=== PATIENT | female | born 1955 | race Caucasian/White ===

== ENCOUNTER → 2017-04-25 | Outpatient (CLI) | payer OTHER | LOC: FIMAGING 15:02 | PROVIDERS: ATTEND Internal Medicine | DX: Z12.31 Encounter for screening mammogram for malignant neoplasm of breast (principal) | CPT/HCPCS: G0202 ==

== ENCOUNTER 2017-11-01 09:54 | Day surgery (SDC) | payer OTHER ==
--- NOTE | 2017-10-29 09:17 | PDGENHP ---
History and Physical History and Physical: Assessment and Plan: 1. Genuine stress incontinence, female Lay has straightforward stress urinary incontinence with a mobile urethra. We reviewed all conservative and surgical options. She has failed conservative management. As a result, she wishes to proceed with a mid urethral sling procedure. Subjective: Patient ID: Lay Olson is a 61 y.o. female who presents to [facility] for incontinence. SUZI Chun is a 61-year-old para 0 woman who presents with incontinence. She has leaked urine for approximately 20 years. It has slowly worsened. She underwent pelvic physical therapy one year ago. She has pelvic strengthening exercises daily. This only helps minimally. She has also been using a Poise Impress incontinence device which helps mildly when hiking. However she leaks with sneezing, coughing, walking and hiking. It tends to get worse as the day progresses. She wears a pad and must change it 4 times during the day and once at night. She is extremely tired of leaking and wishes to discuss options. She has previously undergone urodynamic testing with Dr. Renteria. She brought a copy of the report. PastMedicalHistory No past medical history on file. PastSurgicalHistory Past Surgical History: Procedure Laterality Date FINGER SURGERY Right WRIST SURGERY Right 2006 CURRENT MEDICATIONS: Current Outpatient Prescriptions Medication Sig CALCIUM PO DOCOSAHEXANOIC ACID/EPA (FISH OIL PO) ERGOCALCIFEROL, VITAMIN D2, (VITAMIN D PO) LUTEIN PO multivitamin (HEXAVITAMIN) per tablet Take 1 tablet by mouth daily. RED YEAST RICE PO No current facility-administered medications for this visit. ALLERGIES: No known drug allergies I have reviewed, verified and agree with the past medical, surgical, , family, social and ROS history as documented by the RN today. Objective: Vital Signs: Visit Vitals BP 110/62 Pulse 90 Temp 36.4 C (97.5 F) (Temporal Artery) Resp 14 Ht 1.626 m (5' 4") Wt 63 kg (139 lb) SpO2 96% BMI 23.86 kg/m Physical Exam Gen: This is an alert, well developed woman in no distress. Neuro: She moves all extremities. Psych: She is appropriate, oriented, with normal affect. Neck: No thyroid enlargement, adenopathy, or tenderness. Lungs: Clear to ascultation, no wheezes or rales. Heart: Regular rate and rhythm without obvious murmurs. Abdomen: Soft, non-tender, without guarding, rebound, or masses. Extremities: No edema or cyanosis. Pelvic: Normal external genitalia. Non-gaping introitus, vagina without discharge, adequately estrogenized, no significant prolapse. Cervix without lesions or discharge. Uterus normal sized, mobile, non-tender. Adnexa non- tender without enlargement. The urethra is mobile. She has obvious leakage of urine with coughing. DATA: I have reviewed the pertinent medical records. TIME/COMMUNICATION: I personally spent a total of 30 minutes. Of that 20 minutes was counseling/ coordination of patient's care. See my note above for details. Tevin Obrien MD Board Certified Female Pelvic Medicine and Reconstructive Surgery Director of Minimally Invasive Gynecologic Surgery, [facility] Surgeon in Minimally Invasive Gynecologic Surgery [facility] Surgeon in Robotic Surgery
[2017-11-01] MEDS ORDERED: ceFAZolin 2 GM/SWFI 2 GM/20 ML SYR IVP ONE (10:05)
[2017-11-01] MEDS ORDERED: LIDOCAINE 1% 2 ML INJ ID PRN (10:06)
[2017-11-01] MEDS ORDERED: LR 1,000 ML IV ONE (10:06)
--- NOTE | 2017-11-01 11:07 | PDHPUP ---
History & Physical Update H&P update statement: This history and physical update is based on an assessment of the patient which was completed after admission or registration (within 24 hours), but prior to the surgery/procedure. H&P update: H&P reviewed & patient examined, no change in patient's condition since H&P completed
[2017-11-01] MEDS ORDERED: BUPIVACAINE/EPI 0.5% 30 ML SDV ONE (11:10)
[2017-11-01] MEDS ORDERED: PROPOFOL/EMULSION 500 MG/50 ML BOTTLE IV ONE (11:14)
[2017-11-01] MEDS ORDERED: MIDAZOLAM 2 MG/2 ML VIAL ONE (11:15)
[2017-11-01] MEDS ORDERED: fentaNYL 100 MCG/2 ML INJ ONE (11:15)
[2017-11-01] MEDS ORDERED: ONDANSETRON 4 MG/2 ML VIAL ONE (11:31)
[2017-11-01] MEDS ORDERED: KETOROLAC 30 MG/1 ML SDV ONE (11:31)
[2017-11-01] MEDS ORDERED: HYDROCODONE/APAP 5/325 TAB PO PRN (11:41)
[2017-11-01] MEDS ORDERED: LR 500 ML IV PRN (11:41)
[2017-11-01] MEDS ORDERED: MEPERIDINE 25 MG/ML SYR IVP PRN (11:41)
[2017-11-01] MEDS ORDERED: ACETAMINOPHEN 500 MG TAB PO PRN (11:41)
[2017-11-01] MEDS ORDERED: ONDANSETRON 4 MG/2 ML VIAL IVP PRN (11:41)
[2017-11-01] MEDS ORDERED: ALBUTEROL 3 ML DEYVIAL IH PRN (11:41)
[2017-11-01] MEDS ORDERED: NALOXONE HCL 0.4 MG/ML INJ IVP PRN (11:41)
[2017-11-01] MEDS ORDERED: DEXAMETHASONE 4 MG/ML VIAL IVP PRN (11:41)
[2017-11-01] MEDS ORDERED: fentaNYL 100 MCG/2 ML INJ IVP PRN (11:41)
[2017-11-01] MEDS ORDERED: METOCLOPRAMIDE 10 MG/2 ML VIAL IVP PRN (11:41)
--- NOTE | 2017-11-01 11:41 | PDANEPAE ---
ANE Past Medical History - Cardiovascular History Hx Hypertension: No Hx Arrhythmias: No Hx Chest Pain: No Hx Coronary Artery / Peripheral Vascular Disease: No Hx CHF / Valvular Disease: No Hx Palpitations: No - Pulmonary History Hx COPD: No Hx Asthma/Reactive Airway Disease: No Hx Recent Upper Respiratory Infection: No Hx Oxygen in Use at Home: No Hx Sleep Apnea: No Sleep Apnea Screening Result - Last Documented: Negative - Neurologic History Hx Cerebrovascular Accident: No Hx Seizures: No Hx Dementia: No - Endocrine History Hx Diabetes: No - Renal History Hx Renal Disorders: No - Liver History Hx Hepatic Disorders: No - Neurological & Psychiatric Hx Hx Neurological and Psychiatric Disorders: No - Cancer History Hx Cancer: No - Congenital Disorder History Hx Congenital Disorders: No - GI History Hx Gastrointestinal Disorders: No - Chronic Pain History Chronic Pain: No - Surgical History Prior Surgeries: none ANE Review of Systems Review of Systems: - Exercise capacity METS (RN): 4 METS ANE Patient History - Allergies Allergies/Adverse Reactions: latex Allergy (Mild, Verified 09/26/17 15:36) Other-Enter Comments - Home Medications Home Medications: Red Yeast Rice Extract [Red Yeast Rice] 12/05/10 [Last Taken 1 Week Ago ~] CALCIUM 07/21/15 [Last Taken 1 Week Ago ~10/25/17] Lutein 07/21/15 [Last Taken 1 Week Ago ~10/25/17] Vitamin D3 (OTC) 07/21/15 [Last Taken 1 Week Ago ~10/25/17] Multivitamins 09/26/17 [Last Taken 1 Week Ago ~10/25/17] [place]-3 09/26/17 [Last Taken 1 Week Ago ~10/25/17] - NPO status NPO Since - Liquids (Date): 11/01/17 NPO Since - Liquids (Time): 08:00 NPO Since - Solids (Date): 10/31/17 NPO Since - Solids (Time): 22:15 - Smoking Hx Smoking Status: Never smoked - Family Anes Hx Family Hx Anesthesia Complications: none ANE Labs/Vital Signs - Vital Signs Blood Pressure: 130/81 Heart Rate: 74 Respiratory Rate: 15 O2 Sat (%): 97 Height: 162.56 cm Weight: 62.596 kg ANE Physical Exam - Airway Neck exam: FROM Mallampati Score: Class 1 Mouth exam: normal dental/mouth exam - Pulmonary Pulmonary: no respiratory distress, no rales or rhonchi, clear to auscultation - Cardiovascular Cardiovascular: regular rate and rhythym, no murmur, rub, or gallop ANE Anesthesia Plan Anesthesia Plan: GA w LMA
--- NOTE | 2017-11-01 11:59 | POSTOPPROG ---
Post Op Note Date of Operation: 11/01/17 Surgeon: Tevin Obrien Scrubber Machine Tender: None Anesthesiologist: Cherelle Roberts Anesthesia: GET(General Endotracheal) Pre-op Diagnosis: stess incontinence Post-op Diagnosis: same Procedure: TOT sling, cysto Findings: No injury Inf/Abcess present in the surg proc area at time of surgery?: No Complications: None
--- NOTE | 2017-11-01 12:44 | POSTANESTH ---
Post Anesthetic Evaluation Cardiovascular Status: Normal, Stable Respiratory Status: Normal, Stable Level of Consciousness/Mental Status: Mildly Sleepy, Arousable Pain Control: Adequate, Prn Tx Ordered Nausea/Vomiting Control: Adequate, Prn Tx Ordered Complications Possibly Related to Anesthesia: None Noted
--- NOTE | 2017-11-01 13:01 | GOP ---
[f rep st] OPERATIVE REPORT DATE OF OPERATION: 11/01/2017 SURGEON: Tevin Obrien MD TEMPERATURE REGULATOR PYROMETER: None. ANESTHESIA: General. PREOPERATIVE DIAGNOSIS: Stress urinary incontinence. POSTOPERATIVE DIAGNOSIS: Stress urinary incontinence. PROCEDURE PERFORMED: 1. Transobturator sling. 2. Cystoscopy. FINDINGS: SPECIMENS: None. ESTIMATED BLOOD LOSS: Scant. DESCRIPTION OF PROCEDURE: Lay was taken to the operating room where she was identified. Genera l anesthesia was administered and found to be adequate. She was placed in the lithotomy position and prepared and draped in a normal sterile fashion. A Jessica catheter was placed in her bladder. A mid urethral incision was made with a scalpel. Tunnels were created bilaterally out to the obturat or internus muscles. Skin incisions were made over the obturator notches. The Halo trocar was place d through the left skin incision, redirected around the ischial pubic rami and out through the vagina l incision using a vaginal finger as a guide. The lateral sulci was examined and no evidence of vagi nal injury had occurred. The sling was then attached and brought out along the same course. The exa ct same procedure was performed on the patient's right side. The sling was then adjusted to allow a small mid urethral gap. The vaginal epithelium was closed with 2-0 Vicryl, skin with 4-0 Monocryl. Cystoscopy was then performed. Both ureters had vigorous jets of urine. There was no evidence of bl adder nor urethral injury seen. No mesh nor sutures were seen within the bladder nor urethra. Anest hesia was reversed and the patient taken the PACU awake, in stable condition. COMPLICATIONS: None. DISPOSITION: Patient stable to PACU. /[id number]/MODL
[2017-11-01] MEDS ORDERED: IBUPROFEN 200 MG TAB PO ONE ×2 (13:02→13:15)
[2017-11-01 15:13] VITALS: BP 99/62
== END 2017-11-01 15:13 | disposition home or self-care (01) ==
LOC: FSGY 09:54
PROVIDERS: ATTEND Obstetrics & Gynecology
PROC: 0TUC0JZ Supplement Bladder Neck with Synthetic Substitute, Open Approach (ICD-10-PCS; principal; 2017-11-01 12:15)
PROC: 0TJ98ZZ Inspection of Ureter, Via Natural or Artificial Opening Endoscopic (ICD-10-PCS; principal; 2017-11-01 12:15)
DX: N39.3 Stress incontinence (female) (male) (principal)
CPT/HCPCS: C1771; J0690; J1885; J2250; J2405; J2704; J3010

== ENCOUNTER → 2018-10-16 | Outpatient (CLI) | payer OTHER | LOC: FIMAGING 12:43 | PROVIDERS: ATTEND Internal Medicine | DX: Z12.31 Encounter for screening mammogram for malignant neoplasm of breast (principal) ==